=== PATIENT | male | born 1955 | race Caucasian/White ===

== ENCOUNTER 2018-02-24 09:26 | Inpatient (IN) | payer BC ==
[2018-02-24] VITALS (33 sets, daily range): BP systolic 0–133; BP diastolic 0–76
[~2018-02-24] VITALS: Ht 190.5 cm; Wt 51.1 kg
[2018-02-24] MEDS ORDERED: ETOMIDATE (2MG/ML) 20ML VIAL IV ONE ×2 (09:28→10:00)
[2018-02-24] MEDS ORDERED: SUCCINYLCHOLINE CHLORIDE 20 MG/ML 10ML VIAL IV ONE ×2 (09:28→10:00)
[2018-02-24] MEDS ORDERED: SODIUM CHLORIDE 0.9% 1,000 ML IVB ONE (10:01)
[2018-02-24] MEDS ORDERED: LEVOFLOXACIN 500MG 100 ML IV ONE (10:15)
[2018-02-24 10:31] LABS: Alanine Aminotransferase 13 U/L (16-61); Albumin 2.1 g/dL (3.4-5.0); Anion Gap 16 (5-15); Aspartate Aminotransferase 16 U/L (15-37); BUN/Creatinine Ratio 21.3; Blood Alcohol < 3.0 mg/dL (0-5); Blood Urea Nitrogen 36 mg/dL (7-18); Carbon Dioxide 23 mmol/L (21-32); Chloride 108 mmol/L (98-107); GFR African American 53 mL/min; GFR Non-African American 44 mL/min; Glucose 208 mg/dL (74-106); Magnesium 2.8 mg/dL (1.6-2.6); Sodium 147 mmol/L (136-145)
[2018-02-24 10:33] LABS: Basophils # (auto) 0.4 uL; Eosinophils # (auto) 0.2 uL; Eosinophils % (auto) 0.4 % (0.0-7.0); Hematocrit 31.6 % (41.0-53.0); Hemoglobin 9.3 g/dL (13.5-17.5); Lymphocytes # (auto) 3.6 uL; Lymphocytes % (auto) 8.5 % (10.0-50.0); Mean Corpuscular Hemoglobin 26.3 pg (28.0-32.0); Mean Corpuscular Hgb Conc. 29.4 g/dL (32.0-36.0); Mean Corpuscular Volume 89.3 fL (80.0-100.0); Monocytes % (auto) 4.7 % (0.0-12.0); Neutrophils # (auto) 36.7 uL; Neutrophils % (auto) 85.4 % (37.0-80.0); Red Blood Cells 3.53 10^6/uL (4.5-5.90); Red Cell Distribution Width 15.9 % (11.8-14.3)
[2018-02-24 10:36] LABS: Alkaline Phosphatase 151 U/L (45-117); Bilirubin, Total 0.4 mg/dL (0.2-1.0); Total Protein 6.6 g/dL (6.4-8.2)
[2018-02-24 10:38] LABS: INR 1.3 (0.9-1.15); Partial Thromboplastin Time 17.2 sec (23.78-33.04); Prothrombin Time 13.7 sec (9.27-12.13)
[2018-02-24 10:45] LABS: Platelet Count (auto) 794 10^3/uL (140-450); White Blood Cell 42.9 10^3/uL (4.4-10.8)
[2018-02-24 11:01] LABS: Calcium 15.5 mg/dL (8.5-10.1); Potassium 2.6 mmol/L (3.5-5.1)
[2018-02-24] MEDS ORDERED: MIDAZOLAM DRIP 50 mg/50mL 50 ML IV SCH (11:30)
[2018-02-24] MEDS ORDERED: VANCOMYCIN PER PHARMACY 0 MG IV SCH (12:45)
[2018-02-24] MEDS ORDERED: PIPERACILLIN-TAZOB 3.375GM 100 ML IV ONE (12:45)
[2018-02-24] MEDS ORDERED: SODIUM CHLORIDE 0.9% 2,000 ML IV ONE (12:45)
[2018-02-24] MEDS ORDERED: PROPOFOL 100 ML IV SCH (12:45)
[2018-02-24] MEDS: MIDAZOLAM DRIP 50 mg/50mL 50 ML IV SCH ×2 (12:45→18:43)
[2018-02-24] MEDS ORDERED: DEXTROSE (50%) 50ML SYRG IV PRN (13:00)
[2018-02-24] MEDS: NOREPINEPHRINE 8 MG/250ML KIT 250 ML IV SCH ×2 (13:06→18:43)
[2018-02-24] MEDS ORDERED: NITROGLYCERIN 0.4 MG SL TAB SL PRN (13:15)
[2018-02-24] MEDS ORDERED: PANTOPRAZOLE 40 MG/10 ML VIAL IV ONE (13:15)
[2018-02-24] MEDS ORDERED: PROMETHAZINE HCL 25 MG/ML 1ML IV PRN (13:15)
[2018-02-24] MEDS ORDERED: MORPHINE SULF INJ 2 MG/ML SYRINGE 1ML IV PRN ×2 (13:15)
[2018-02-24] MEDS ORDERED: FAMOTIDINE (10MG/ML) 2ML VL IV ONE (13:15)
[2018-02-24] MEDS: POTASSIUM CHL 20MEQ/100ML 100 ML IV SCH ×2 (13:26→16:19)
[2018-02-24] MEDS ORDERED: VANCOMYCIN 1GM/250ML 250 ML IV SCH (15:00)
[2018-02-24] MEDS: SODIUM CHLORIDE 0.9% 1,000 ML IV SCH (16:20)
[2018-02-24] MEDS: InsuLIN REG 1unit/0.01ml Soln (100units/ml) SC SCH (18:00)
[2018-02-24] MEDS: ACCU-CHEK COMFORT CURVE STRIP VI SCH (18:00)
[2018-02-24] MEDS: PIPERACILLIN-TAZOB 3.375GM 100 ML IV SCH (18:53)
[2018-02-24] MEDS: IPRATROPIUM BROM 0.5 MG/2.5ML INH SOL NEB SCH (19:12)
[2018-02-24] MEDS: ALBUTEROL SULF 2.5 MG/0.5ML(0.5%) NEB SOLN NEB SCH (19:12)
[2018-02-24] MEDS ORDERED: POTASSIUM EFFERVESENT TAB 25 MEQ GT ONE (23:00)
[2018-02-24] MEDS ORDERED: ALBUMIN 5% 250 ML IV ONE (23:45)
[2018-02-24] MEDS ORDERED: VASOPRESSIN 50 UNITS in D5W 5% 247.5 ML IV SCH (23:45)
[2018-02-24] MEDS ORDERED: VASOPRESSIN 20 UNIT/ML ONE (23:59)
[2018-02-25] VITALS (69 sets, daily range): BP systolic 56–118; BP diastolic 28–54
[2018-02-25] MEDS: SODIUM CHLORIDE 0.9% 1,000 ML IV SCH ×2 (00:11→10:00)
[2018-02-25] MEDS: IPRATROPIUM BROM 0.5 MG/2.5ML INH SOL NEB SCH ×2 (00:26→06:00)
[2018-02-25] MEDS: ALBUTEROL SULF 2.5 MG/0.5ML(0.5%) NEB SOLN NEB SCH ×2 (00:26→06:00)
[2018-02-25] MEDS: PIPERACILLIN-TAZOB 3.375GM 100 ML IV SCH ×2 (01:09→06:47)
[2018-02-25 03:52] LABS: Hematocrit 25.9 % (41.0-53.0); Mean Corpuscular Hemoglobin 26.5 pg (28.0-32.0); Mean Corpuscular Hgb Conc. 30.3 g/dL (32.0-36.0)
[2018-02-25 03:58] LABS: Hemoglobin 7.8 g/dL (13.5-17.5); Mean Corpuscular Volume 87.3 fL (80.0-100.0); Platelet Count (auto) 472 10^3/uL (140-450); Red Blood Cells 2.96 10^6/uL (4.5-5.90); Red Cell Distribution Width 15.6 % (11.8-14.3)
[2018-02-25 04:12] LABS: Albumin 1.8 g/dL (3.4-5.0); Potassium 3.6 mmol/L (3.5-5.1)
[2018-02-25 04:16] LABS: BUN/Creatinine Ratio 21.3; Bilirubin, Total 1.2 mg/dL (0.2-1.0)
[2018-02-25] MEDS: NOREPINEPHRINE 8 MG/250ML KIT 250 ML IV SCH ×2 (04:17→10:56)
[2018-02-25 04:18] LABS: Total Protein 5.1 g/dL (6.4-8.2)
[2018-02-25 04:24] LABS: Calcium 13.2 mg/dL (8.5-10.1); White Blood Cell 44.3 10^3/uL (4.4-10.8)
[2018-02-25 04:25] LABS: Basophils % (manual) 0 (0.0-2.0); Blast Cells 0; Eosinophils % (manual) 0 (0-7); Metamyelocytes % 0; Myelocytes % 0; Promyelocytes % 0; Reactive Lymphocytes 0
[2018-02-25 04:49] LABS: Band Neutrophils % (manual) 21; Lymphocytes % (manual) 3 (10.0-50.0); Monocytes % (manual) 3 (0-12)
[2018-02-25] MEDS ORDERED: CALCITONIN INJECTABLE (200U/ML) 2ML VIAL SC ONE (05:00)
[2018-02-25] MEDS: InsuLIN REG 1unit/0.01ml Soln (100units/ml) SC SCH ×2 (06:00)
[2018-02-25] MEDS: MIDAZOLAM DRIP 50 mg/50mL 50 ML IV SCH (06:01)
[2018-02-25] MEDS: ACCU-CHEK COMFORT CURVE STRIP VI SCH ×2 (06:27)
[2018-02-25] MEDS ORDERED: PANTOPRAZOLE 40 MG/10 ML VIAL IV SCH (10:00)
[2018-02-25] MEDS ORDERED: FAMOTIDINE (10MG/ML) 2ML VL IV SCH (10:00)
[2018-02-25 12:41] LABS: Hemoglobin 7.8 g/dL (13.5-17.5)
[2018-02-25] MEDS: MORPHINE SULFATE 4 MG/ML SYR/VIAL IV PRN ×2 (12:46→14:48)
[2018-02-25 12:47] LABS: Hematocrit 25.8 % (41.0-53.0)
[2018-02-25] MEDS ORDERED: LORazepam 2MG/ML-1ML VIAL ONE (13:09)
[2018-02-25] MEDS ORDERED: PROMETHAZINE HCL 25 MG/ML 1ML IV PRN (13:15)
[2018-02-25] MEDS ORDERED: LORazepam 2MG/ML-1ML VIAL IV PRN (13:15)
== END 2018-02-25 19:47 | disposition expired | DRG 871 ==
LOC: ER 09:26 → EDBD 09:26 → TELE 09:27 → ICU WEST 15:06
PROVIDERS: ADMIT Internal Medicine; ATTEND Internal Medicine
PROC: 5A1935Z Respiratory Ventilation, Less than 24 Consecutive Hours (ICD-10-PCS; principal; 2018-02-24)
PROC: 0BH17EZ Insertion of Endotracheal Airway into Trachea, Via Natural or Artificial Opening (ICD-10-PCS; 2018-02-24)
DX: A41.9 Sepsis, unspecified organism (principal); E43 Unspecified severe protein-calorie malnutrition; J69.0 Pneumonitis due to inhalation of food and vomit; C79.51 Secondary malignant neoplasm of bone; D68.9 Coagulation defect, unspecified; E87.0 Hyperosmolality and hypernatremia; R64 Cachexia; Z68.1 Body mass index [BMI] 19.9 or less, adult; C34.90 Malignant neoplasm of unspecified part of unspecified bronchus or lung; D63.8 Anemia in other chronic diseases classified elsewhere; R65.20 Severe sepsis without septic shock; D47.3 Essential (hemorrhagic) thrombocythemia; E11.21 Type 2 diabetes mellitus with diabetic nephropathy; E11.22 Type 2 diabetes mellitus with diabetic chronic kidney disease; E83.41 Hypermagnesemia; E83.52 Hypercalcemia; E87.6 Hypokalemia; N18.3 Chronic kidney disease, stage 3 (moderate); Z51.5 Encounter for palliative care; Z66 Do not resuscitate; Z90.2 Acquired absence of lung [part of]; Z87.891 Personal history of nicotine dependence
CPT/HCPCS: 31500; 36415; 36556; 36600; 51702; 70450; 71045; 80053; 80320; 82805; 82962; 83036; 83605; 83735; 84132; 84484; 85007; 85014; 85018; 85025; 85027; 85610; 85730; 87040; 87070; 87077; 87081; 87186; 87205; 93005; 94002; 94003; 94640; 96365; 96367; 96375; 99291; C9113; J0330; J1815; J1956; J2250; J2543; J3480; J3490; J7060